=== PATIENT | female | born 1975 | race Caucasian/White ===

== ENCOUNTER 2021-11-11 03:38 | Emergency (ER) | payer OTHER ==
[~2021-11-11] VITALS: Ht 170.2 cm; Wt 107.5 kg
[~2021-11-11 03:38] MED LIST: CATAPRES0.1 MG PO; LYRICA50 MG; NORFLEX100 MG; OSEL75CA PO; SEPTRA DS TABLE1 TAB PO; TOPAMAX25 MG; TRILEPTAL150 MG; VASOTEC5 MG; VISTARIL50 MG PO
[2021-11-11] MEDS ORDERED: COZAAR25 MG ×2 (03:57→04:05)
[2021-11-11] MEDS ORDERED: SYNTHROID112 MCG (03:57)
[2021-11-11] MEDS ORDERED: HYDRODIURIL12.5 MG (03:58)
[2021-11-11] MEDS ORDERED: CARBATROL300 MG (03:58)
[2021-11-11] MEDS ORDERED: CENTANY30 GM TOP (07:42)
[2021-11-11] MEDS ORDERED: BENADRYL25 MG PO (07:42)
== END 2021-11-11 08:14 ==
LOC: ER 03:38
DX: I10 Essential (primary) hypertension (principal); R00.2 Palpitations; R51.9 Headache, unspecified; R53.1 Weakness; R53.83 Other fatigue; S80.862A Insect bite (nonvenomous), left lower leg, initial encounter; S80.861A Insect bite (nonvenomous), right lower leg, initial encounter; W57.XXXA Bitten or stung by nonvenomous insect and other nonvenomous arthropods, initial encounter; Z88.0 Allergy status to penicillin; Z88.1 Allergy status to other antibiotic agents